=== PATIENT | female | born 1970 | race Two or more races ===

== ENCOUNTER 2024-09-17 15:49 | Emergency (ER) | payer OTHER ==
[~2024-09-17] VITALS: Ht 157.5 cm; Wt 79.4 kg
[2024-09-18] MEDS ORDERED: ZOFRAN8 MG PO (05:37)
== END 2024-09-17 19:13 | disposition home or self-care (01) ==
LOC: ER 15:49
DX: S09.8XXA Other specified injuries of head, initial encounter (principal); X58.XXXA Exposure to other specified factors, initial encounter; Y93.89 Activity, other specified; Y92.89 Other specified places as the place of occurrence of the external cause; Y99.8 Other external cause status; R51.9 Headache, unspecified

== ENCOUNTER 2024-09-18 03:19 | Emergency (ER) | payer OTHER ==
[~2024-09-18] VITALS: Ht 157.5 cm; Wt 796.1 kg
[2024-09-18] MEDS ORDERED: ONDANSETRON 4 MG TAB.RAPDIS PO ONE (03:56)
[2024-09-18] MEDS ORDERED: ONDANSETRON 4 MG TAB.RAPDIS PO STA (03:56)
[2024-09-18] MEDS ORDERED: ZOFRAN8 MG PO (05:37)
== END 2024-09-18 06:09 ==
LOC: ER 03:29
DX: G89.11 Acute pain due to trauma (principal); R51.9 Headache, unspecified; Z87.828 Personal history of other (healed) physical injury and trauma